=== PATIENT | male | born 1960 | race Caucasian/White ===

== ENCOUNTER 2016-11-27 14:44 | Emergency (ER) | payer OTHER | END 2016-11-27 15:23 | disposition home or self-care (01) | LOC: ER 14:44 | DX: J06.9 Acute upper respiratory infection, unspecified (principal); G89.29 Other chronic pain; M54.5 Low back pain; F17.210 Nicotine dependence, cigarettes, uncomplicated; Z79.82 Long term (current) use of aspirin; Z79.899 Other long term (current) drug therapy; Z88.8 Allergy status to other drugs, medicaments and biological substances ==

== ENCOUNTER 2016-12-01 16:39 | Emergency (ER) | payer OTHER | END 2016-12-01 17:02 | disposition home or self-care (01) | LOC: ER 16:39 | DX: M54.5 Low back pain (principal); J44.9 Chronic obstructive pulmonary disease, unspecified; I25.2 Old myocardial infarction; F17.210 Nicotine dependence, cigarettes, uncomplicated; Z90.49 Acquired absence of other specified parts of digestive tract; Z79.899 Other long term (current) drug therapy; Z79.82 Long term (current) use of aspirin; Z88.8 Allergy status to other drugs, medicaments and biological substances; Z88.1 Allergy status to other antibiotic agents ==

== ENCOUNTER 2017-02-05 16:13 | Emergency (ER) | payer OTHER | END 2017-02-05 17:26 | disposition home or self-care (01) | LOC: ER 16:13 | DX: K29.00 Acute gastritis without bleeding (principal); M25.561 Pain in right knee; J44.9 Chronic obstructive pulmonary disease, unspecified; I10 Essential (primary) hypertension; F17.210 Nicotine dependence, cigarettes, uncomplicated; Z95.0 Presence of cardiac pacemaker; Z79.82 Long term (current) use of aspirin; Z79.899 Other long term (current) drug therapy; Z88.1 Allergy status to other antibiotic agents; Z88.8 Allergy status to other drugs, medicaments and biological substances; Z90.49 Acquired absence of other specified parts of digestive tract ==

== ENCOUNTER 2017-03-15 19:54 | Observation (INO) | payer OTHER ==
[~2017-03-15] VITALS: Ht 182.9 cm; Wt 81.8 kg
== END 2017-03-17 12:15 | disposition home or self-care (01) ==
LOC: ER 19:54 → MED 03-16 00:33
PROVIDERS: ADMIT Internal Medicine
DX: F11.23 Opioid dependence with withdrawal (principal); F19.939 Other psychoactive substance use, unspecified with withdrawal, unspecified; R07.9 Chest pain, unspecified; E87.6 Hypokalemia; D72.829 Elevated white blood cell count, unspecified; E03.9 Hypothyroidism, unspecified; E86.0 Dehydration; I48.0 Paroxysmal atrial fibrillation; I10 Essential (primary) hypertension; I25.10 Atherosclerotic heart disease of native coronary artery without angina pectoris; K21.9 Gastro-esophageal reflux disease without esophagitis; Z79.01 Long term (current) use of anticoagulants; Z79.899 Other long term (current) drug therapy; Z90.49 Acquired absence of other specified parts of digestive tract; Z98.890 Other specified postprocedural states
CPT/HCPCS: 36415; 80307; 96361; 96374; 97161-GP; 97165; G0378